=== PATIENT | male | born 1970 | race Caucasian/White ===

== ENCOUNTER 2021-02-01 08:29 | Outpatient (RCR) | payer BC, SELFPAY | END 2021-02-06 | LOC: M PT 08:29 | PROVIDERS: ATTEND Orthopaedic Surgery | DX: S82.152D Displaced fracture of left tibial tuberosity, subsequent encounter for closed fracture with routine healing (principal); X58.XXXD Exposure to other specified factors, subsequent encounter; Y92.9 Unspecified place or not applicable; Y99.9 Unspecified external cause status; Y93.9 Activity, unspecified ==

== ENCOUNTER → 2021-03-08 | Outpatient (RCR) | payer BC | LOC: M PT 02-08 07:43 | PROVIDERS: ATTEND Orthopaedic Surgery | DX: S42.252D Displaced fracture of greater tuberosity of left humerus, subsequent encounter for fracture with routine healing (principal); X58.XXXD Exposure to other specified factors, subsequent encounter; Y92.9 Unspecified place or not applicable; Y99.9 Unspecified external cause status; Y93.9 Activity, unspecified ==

== ENCOUNTER 2021-04-02 08:23 | Outpatient (RCR) | payer BC | END 2021-04-08 | LOC: M PT 08:23 | PROVIDERS: ATTEND Orthopaedic Surgery | DX: S42.252D Displaced fracture of greater tuberosity of left humerus, subsequent encounter for fracture with routine healing (principal); X58.XXXD Exposure to other specified factors, subsequent encounter; Y92.9 Unspecified place or not applicable; Y93.9 Activity, unspecified; Y99.9 Unspecified external cause status ==

== ENCOUNTER 2021-05-01 08:26 | Outpatient (RCR) | payer OTHER, BC | END 2021-05-08 | LOC: M PT 08:26 | PROVIDERS: ATTEND Orthopaedic Surgery | DX: S42.252D Displaced fracture of greater tuberosity of left humerus, subsequent encounter for fracture with routine healing (principal); X58.XXXD Exposure to other specified factors, subsequent encounter; Y92.9 Unspecified place or not applicable; Y99.9 Unspecified external cause status; Y93.9 Activity, unspecified ==

== ENCOUNTER 2021-05-15 08:28 | Outpatient (RCR) | payer BC | END 2021-06-08 | LOC: M PT 08:28 | PROVIDERS: ATTEND Orthopaedic Surgery | DX: S42.252D Displaced fracture of greater tuberosity of left humerus, subsequent encounter for fracture with routine healing (principal); X58.XXXD Exposure to other specified factors, subsequent encounter; Y92.9 Unspecified place or not applicable; Y93.9 Activity, unspecified; Y99.9 Unspecified external cause status ==

== ENCOUNTER → 2022-05-24 | Outpatient (REF) | payer OTHER, BC | LOC: M LAB REF 17:06 | PROVIDERS: ATTEND Physician Assistant | DX: J02.9 Acute pharyngitis, unspecified (principal) ==

== ENCOUNTER → 2024-02-04 | Outpatient (CLI) | payer BC | LOC: M RAD 09:44 | PROVIDERS: ATTEND Physician Assistant | DX: M79.644 Pain in right finger(s) (principal) ==

== ENCOUNTER 2024-02-20 10:24 | Day surgery (SDC) | payer BC ==
[~2024-02-20] VITALS: Ht 170.2 cm; Wt 83.9 kg
[~2024-02-20 10:24] MED LIST: FLUT1BLS4 INH; HYDR-3490 PO; LISI30TA4 PO; MONT10TA97 PO; SODIUM BICARBONATE 8.4% INJ 50MEQ 50ML VIAL XX ONE
[2024-02-20] MEDS ORDERED: fentaNYL 100 MCG/2 ML INJECTION As Ordered ONE (11:28)
[2024-02-20] MEDS ORDERED: MIDAZOLAM INJ 2MG/2ML VIAL As Ordered ONE (11:28)
[2024-02-20] MEDS ORDERED: propofoL 200 MG/20 ML VIAL As Ordered ONE (11:30)
[2024-02-20] MEDS ORDERED: LIDOCAINE 2% 100MG/5ML SDV (FOR ANES.) As Ordered ONE (11:30)
[2024-02-20] MEDS ORDERED: ACETAMINOPHEN 1000MG 100ML IV BAG As Ordered ONE (11:31)
[2024-02-20] MEDS: ceFAZolin 2 GM/D5W 50 ML IV BAG As Ordered ONE (11:45)
[2024-02-20] MEDS ORDERED: KETOROLAC 60MG 2ML VIAL As Ordered ONE (12:05)
[2024-02-20] MEDS ORDERED: ONDANSETRON 4MG 2ML VIAL As Ordered ONE (12:05)
[2024-02-20] MEDS: BACITRACIN OINTMENT 30GM TUBE As Ordered ONE (12:08)
[2024-02-20] MEDS: LIDOCAINE 1% SDV 30ML VIAL XX ONE (12:08)
[2024-02-20] MEDS ORDERED: PERC5TAB12 PO (12:23)
[2024-02-20 12:50] VITALS: BP 133/94; TEMP 97.1; O2SAT 100
== END 2024-02-20 13:00 | disposition home or self-care (01) ==
LOC: M SDC 10:24
PROVIDERS: ATTEND Orthopaedic Surgery Hand Surgery
DX: M20.011 Mallet finger of right finger(s) (principal); I10 Essential (primary) hypertension; J45.909 Unspecified asthma, uncomplicated; Z79.899 Other long term (current) drug therapy; Z88.0 Allergy status to penicillin
CPT/HCPCS: 26432; 76000; J0131; J0665; J0690; J1885; J2250; J2405; J3010